=== PATIENT | female | born 2000 | race Two or more races ===

== ENCOUNTER 2022-03-12 18:14 | Emergency (ER) | payer OTHER ==
[~2022-03-12] VITALS: Ht 167.6 cm; Wt 66.2 kg
[2022-03-12] MEDS ORDERED: PRENATAL DHA200 MG (18:46)
== END 2022-03-12 21:43 | disposition home or self-care (01) ==
LOC: ER 18:14
DX: O26.852 Spotting complicating pregnancy, second trimester (principal); Z3A.16 16 weeks gestation of pregnancy

== ENCOUNTER 2022-05-11 12:18 | Emergency (ER) | payer OTHER ==
[~2022-05-11] VITALS: Ht 167.6 cm; Wt 71.2 kg
[~2022-05-11 12:18] MED LIST: PRENATAL DHA200 MG
[2022-05-11] MEDS ORDERED: ZITHROMAX200 MG PO (14:16)
== END 2022-05-11 14:40 | disposition home or self-care (01) ==
LOC: ER 12:18
DX: B34.9 Viral infection, unspecified (principal)

== ENCOUNTER 2022-08-17 10:29 | Inpatient (IN) | payer OTHER ==
[~2022-08-17] VITALS: Ht 167.6 cm; Wt 83.0 kg
[~2022-08-17 10:29] MED LIST changes: +ZITHROMAX200 MG PO
== END 2022-08-19 16:10 | disposition home or self-care (01) | DRG 807 ==
LOC: LDR 10:29 → OB/GYN 10:29 → LDR 16:57 → OB/GYN 19:42
PROVIDERS: ADMIT Obstetrics & Gynecology; ATTEND Obstetrics & Gynecology
PROC: 10E0XZZ Delivery of Products of Conception, External Approach (ICD-10-PCS; principal; 2022-08-17)
PROC: 4A1HXCZ Monitoring of Products of Conception, Cardiac Rate, External Approach (ICD-10-PCS; 2022-08-17)
DX: O80 Encounter for full-term uncomplicated delivery (principal); Z37.0 Single live birth; Z3A.38 38 weeks gestation of pregnancy; Z20.822 Contact with and (suspected) exposure to COVID-19